=== PATIENT | female | born 1965 | race Caucasian/White ===

== ENCOUNTER 2021-01-13 06:00 | Inpatient (IN) | payer OTHER ==
[~2021-01-13] VITALS: Ht 160 cm; Wt 97.5 kg
[~2021-01-13 06:00] MED LIST: CATAFLAN PO; LIRICA PO; LISINOPRIL1 GM; RESTORIL PO; ZANAFLEX4 M1 PO
[2021-01-13] MEDS ORDERED: DICLOFENAC SODI75 MG (08:06)
[2021-01-13] MEDS ORDERED: RESTORIL30 MG (08:06)
[2021-01-13] MEDS ORDERED: PREGABALIN200 MG (08:06)
[2021-01-13] MEDS ORDERED: ATORVASTATIN CA10 MG (08:06)
[2021-01-13] MEDS ORDERED: OMEPRAZOLE20 MG (08:07)
[2021-01-13] MEDS ORDERED: DICLOFENAC POTA50 MG (08:07)
[2021-01-13] MEDS ORDERED: BUTALB-ACETAMI1 EAC2 (08:07)
[2021-01-13] MEDS ORDERED: VENLAFAXINE HCL75 M1 (08:07)
[2021-01-13] MEDS ORDERED: GABAPENTIN300 M2 (08:07)
[2021-01-13] MEDS ORDERED: PERCOCET 5-3251 EACH PO (09:11)
[2021-01-13] MEDS ORDERED: MEDROLPACK PO (09:11)
[2021-01-13] MEDS ORDERED: AMOX-CLAV 875-1 EACH PO (09:11)
[2021-01-13] MEDS ORDERED: COLACE100 MG PO (09:11)
== END 2021-01-14 14:13 | disposition home or self-care (01) | DRG 472 ==
LOC: O/R 06:00 → SURG 06:00 → SURH 09:28 → SURG 10:15 → SURH 10:16 → SURG 01-14 14:13
PROVIDERS: ADMIT Orthopaedic Surgery Orthopaedic Surgery of the Spine; ATTEND Orthopaedic Surgery Orthopaedic Surgery of the Spine
PROC: 07DS3ZZ Extraction of Vertebral Bone Marrow, Percutaneous Approach (ICD-10-PCS; 2021-01-13)
PROC: 0RG10A0 Fusion of Cervical Vertebral Joint with Interbody Fusion Device, Anterior Approach, Anterior Column, Open Approach (ICD-10-PCS; principal; 2021-01-13 07:00)
DX: T84.226A Displacement of internal fixation device of vertebrae, initial encounter (principal); M50.022 Cervical disc disorder at C5-C6 level with myelopathy; Y83.8 Other surgical procedures as the cause of abnormal reaction of the patient, or of later complication, without mention of misadventure at the time of the procedure